=== PATIENT | female | born 1940 | race African-American/Black ===

== ENCOUNTER 2017-05-02 08:39 | Emergency (ER) | payer MEDICARE ==
[~2017-05-02] VITALS: Ht 160 cm; Wt 83.9 kg
[2017-05-02 09:47] LABS: ALBUMIN 3.7 g/dL (3.4-5.0); ANION GAP 9 mmol/L (5-15); CHLORIDE 105 mmol/L (98-107); CREATININE 1.16 mg/dL (0.55-1.02)
[2017-05-02 10:20] LABS: BASOPHILS # (AUTO) 0.03 x10^3/uL (0-0.1); BASOPHILS % (AUTO) 1 % (0-1); EOSINOPHILS # (AUTO) 0.21 x10^3/uL (0-0.4); EOSINOPHILS % (AUTO) 3 % (1-7); LYMPHOCYTES # (AUTO) 1.75 x10^3/uL (1-3.4); LYMPHOCYTES % (AUTO) 27 % (22-44); MD NO; MEAN CORPUSCULAR HEMOGLOBIN 30.9 pg (27.0-34.8); MEAN PLATELET VOLUME 10.3 fL (7.4-10.4); MONOCYTES # (AUTO) 0.39 x10^3/uL (0.2-0.8); MONOCYTES % (AUTO) 6 % (2-9); NEUTROPHILS # (AUTO) 4.09 x10^3/uL (1.8-6.8); NEUTROPHILS % (AUTO) 63 % (42-75); PLATELET COUNT 255 x10^3/uL (130-400); RED BLOOD COUNT 3.85 x10^6/uL (3.82-5.3); RED CELL DISTRIBUTION WIDTH 13.3 % (9.6-15.2)
[2017-05-02] MEDS ORDERED: LOSA100T6 PO (11:07)
[2017-05-02] MEDS ORDERED: OMEP-110 PO (11:07)
[2017-05-02] MEDS ORDERED: PRIM250T PO (11:07)
[2017-05-02] MEDS ORDERED: GEMF600T3 PO (11:07)
[2017-05-02] MEDS ORDERED: ERGO500017 PO (11:07)
[2017-05-02] MEDS ORDERED: CEPH-368 PO (11:07)
[2017-05-02] MEDS ORDERED: ASPI-515 PO (11:07)
[2017-05-02] MEDS ORDERED: HYDR25TA6 PO (11:07)
[2017-05-02] MEDS ORDERED: AMLO10TA2 PO (11:07)
[2017-05-02] MEDS ORDERED: KETOROLAC 30 MG/1 ML IM ONE (12:00)
[2017-05-02] MEDS ORDERED: KETOROLAC 30 MG/1 ML ONE (12:05)
[2017-05-02 12:13] VITALS: BP 174/72
== END 2017-05-02 12:36 | disposition home or self-care (01) ==
LOC: ED 12:30
DX: M54.16 Radiculopathy, lumbar region (principal); M79.662 Pain in left lower leg; E11.9 Type 2 diabetes mellitus without complications; I10 Essential (primary) hypertension; E78.00 Pure hypercholesterolemia, unspecified; Z79.82 Long term (current) use of aspirin
CPT/HCPCS: 36415; 80048; 82040; 85025; 93971; 96372; 99285; J1885

== ENCOUNTER 2017-05-10 19:50 | Emergency (ER) | payer MEDICARE ==
[~2017-05-10] VITALS: Ht 160 cm; Wt 85.9 kg
[~2017-05-10 19:50] MED LIST: AMLO10TA2 PO; ASPI-515 PO; CEPH-368 PO; ERGO500017 PO; GEMF600T3 PO; HYDR25TA6 PO; LOSA100T6 PO; OMEP-110 PO; PRIM250T PO
[2017-05-10] MEDS ORDERED: ONDANSETRON 2MG/ML, 2ML IVPush ONE (20:30)
[2017-05-10] MEDS ORDERED: DIAZEPAM 5 MG/ML, 2ML IV ONE (20:30)
[2017-05-10] MEDS ORDERED: SODIUM CHLORIDE FLUSH 10ML SYR IVF ONE (20:30)
[2017-05-10] MEDS ORDERED: MORPHINE SULFATE 4 MG/ML, 1ML ONE ×2 (20:32→22:46)
[2017-05-10] MEDS ORDERED: ONDANSETRON 2MG/ML, 2ML ONE (20:32)
[2017-05-10] MEDS: MORPHINE SULFATE 4 MG/ML, 1ML IVPush PRN ×2 (20:51→22:50)
[2017-05-10 21:02] LABS: ALBUMIN 3.8 g/dL (3.4-5.0); ANION GAP 10 mmol/L (5-15); CALCIUM 9.5 mg/dL (8.5-10.1); CHLORIDE 101 mmol/L (98-107); CREATININE 1.33 mg/dL (0.55-1.02)
[2017-05-10 21:36] LABS: BASOPHILS # (AUTO) 0.05 x10^3/uL (0-0.1); BASOPHILS % (AUTO) 1 % (0-1); EOSINOPHILS # (AUTO) 0.11 x10^3/uL (0-0.4); EOSINOPHILS % (AUTO) 1 % (1-7); LYMPHOCYTES % (AUTO) 15 % (22-44); MD NO; MEAN CORPUSCULAR HEMOGLOBIN 30.8 pg (27.0-34.8); MEAN CORPUSCULAR HGB CONC 33.6 g/dL (32.4-35.8); MEAN CORPUSCULAR VOLUME 91.5 fL (80-100); MEAN PLATELET VOLUME 9.8 fL (7.4-10.4); MONOCYTES # (AUTO) 0.48 x10^3/uL (0.2-0.8); MONOCYTES % (AUTO) 6 % (2-9); NEUTROPHILS # (AUTO) 6.72 x10^3/uL (1.8-6.8); NEUTROPHILS % (AUTO) 78 % (42-75); PLATELET COUNT 242 x10^3/uL (130-400); RED BLOOD COUNT 3.62 x10^6/uL (3.82-5.3); RED CELL DISTRIBUTION WIDTH 13.4 % (9.6-15.2)
[2017-05-10] MEDS ORDERED: OMNIPAQUE 350 MG/ML, 100ML BOTTLE ONE (22:24)
[2017-05-10] MEDS ORDERED: CEFTRIAXONE PMX 1GM/50ML 50 ML IVPB ONE (23:00)
[2017-05-10] MEDS ORDERED: CEFTRIAXONE PMX 1GM/50ML 50 ML ONE (23:06)
[2017-05-11 00:04] VITALS: BP 117/50
== END 2017-05-11 00:06 | disposition home or self-care (01) ==
LOC: ED 23:06
DX: J02.9 Acute pharyngitis, unspecified (principal); M54.2 Cervicalgia; G24.3 Spasmodic torticollis; E11.9 Type 2 diabetes mellitus without complications; I10 Essential (primary) hypertension
CPT/HCPCS: 36415; 70491; 80048; 82040; 83605; 85025; 85651; 86140; 87040; 96365; 96375; 99285; J0696; J2405; J3360; Q9967